=== PATIENT | female | born 1990 | race Two or more races ===

== ENCOUNTER 2018-12-02 18:45 | Emergency (ER) | payer MEDICAID ==
[~2018-12-02] VITALS: Ht 165.1 cm; Wt 65.0 kg
[2018-12-02] MEDS ORDERED: SODIUM CHLORIDE 0.9% 1,000 ML IV ONE (19:41)
[2018-12-02 20:54] LABS: CHLORIDE 110 mEq/L (98-107)
[2018-12-02 20:57] LABS: BASOPHILS % 0.2 % (0.0-2.0); EOSINOPHILS % 1.1 % (0.0-5.0); HEMATOCRIT. 39.1 % (36.0-48.0); HEMOGLOBIN. 13.2 g/dL (12.0-16.0); LYMPHOCYTES % 18.2 % (20.0-50.0); MEAN CORPUSCULAR HEMOGLOBIN 30.1 pg (28.0-32.0); MEAN CORPUSCULAR VOLUME 89.4 fL (81.0-99.0); MEAN PLATELET VOLUME 7.1 fl (7.4-10.4); MONOCYTES % 5.6 % (2.0-8.0); NEUTROPHILS % 74.9 % (40.0-76.0); PLATELET 248 x1000/uL (130-400); RED BLOOD CELL COUNT 4.38 mill/uL (4.2-5.4); RED CELL DISTRIBUTION WIDTH 13.8 % (11.6-14.6)
[2018-12-02 21:00] LABS: PHOSPHORUS 2.2 mg/dL (2.5-4.9)
[2018-12-02 22:58] VITALS: BP 125/85
== END 2018-12-02 23:05 | disposition home or self-care (01) ==
LOC: ER 18:45
DX: R25.8 Other abnormal involuntary movements (principal); E83.39 Other disorders of phosphorus metabolism; F31.9 Bipolar disorder, unspecified
CPT/HCPCS: 36415; 80053; 83735; 84100; 85025; 99283; J7030

== ENCOUNTER 2019-09-22 20:58 | Emergency (ER) | payer MEDICAID ==
[~2019-09-22] VITALS: Ht 170.2 cm; Wt 91.0 kg
[2019-09-22 21:04] VITALS: BP 132/66
[2019-09-22] MEDS ORDERED: SODIUM CHLORIDE 0.9% 1,000 ML IV ONE (22:10)
[2019-09-22] MEDS ORDERED: ACETAMINOPHEN 325MG TABLET PO ONE (22:30)
[2019-09-22 23:01] LABS: CLARITY URINE CLEAR (CLEAR); COLOR URINE YELLOW (YELLOW); KETONES URINE NEGATIVE (NEGATIVE); LEUKOCYTE ESTERASE URINE NEGATIVE (NEGATIVE); NITRITE URINE NEGATIVE (NEGATIVE); OCCULT BLOOD URINE 2+ (NEGATIVE); PH URINE 6.5 (4.5-8.0); PROTEIN URINE NEGATIVE (NEGATIVE); SPECIFIC GRAVITY URINE 1.009 (1.005-1.030)
[2019-09-23 00:04] LABS: BASOPHILS % 0.2 % (0.0-2.0); CHLORIDE 108 mEq/L (98-107); EOSINOPHILS % 0.7 % (0.0-5.0); HEMATOCRIT. 39.7 % (36.0-48.0); HEMOGLOBIN. 13.3 g/dL (12.0-16.0); LYMPHOCYTES % 23.3 % (20.0-50.0); MEAN CORPUSCULAR HEMOGLOBIN 29.9 pg (28.0-32.0); MEAN CORPUSCULAR VOLUME 89.1 fL (81.0-99.0); MEAN PLATELET VOLUME 7.5 fl (7.4-10.4); MONOCYTES % 6.8 % (2.0-8.0); PLATELET 247 x1000/uL (130-400); RED BLOOD CELL COUNT 4.46 mill/uL (4.2-5.4); RED CELL DISTRIBUTION WIDTH 13.3 % (11.6-14.6)
[2019-09-23 00:29] LABS: B-HCG QUANTITATIVE 48037 mIU/mL (<3)
== END 2019-09-23 02:29 | disposition home or self-care (01) ==
LOC: ER 21:13
DX: O20.0 Threatened abortion (principal); Z3A.01 Less than 8 weeks gestation of pregnancy; F31.9 Bipolar disorder, unspecified
CPT/HCPCS: 36415; 76700; 76801; 76817; 80053; 81003; 81025; 84702; 85025; 86850; 86900; 86901; 93005; 99285; J7030

== ENCOUNTER 2020-04-09 10:34 | Observation (INO) | payer MEDICAID ==
[~2020-04-09] VITALS: Ht 167.6 cm; Wt 104.3 kg
[2020-04-09] MEDS ORDERED: LACTATED RINGERS 1,000 ML IV ONE (11:00)
[2020-04-09 11:49] LABS: BASOPHILS % 0.1 % (0.0-2.0); EOSINOPHILS % 0.5 % (0.0-5.0); HEMATOCRIT. 37.8 % (36.0-48.0); HEMOGLOBIN. 12.7 g/dL (12.0-16.0); LYMPHOCYTES % 15.9 % (20.0-50.0); MEAN CORPUSCULAR VOLUME 92.1 fL (81.0-99.0); MONOCYTES % 7.9 % (2.0-8.0); NEUTROPHILS % 75.6 % (40.0-76.0); PLATELET 224 x1000/uL (130-400); RED CELL DISTRIBUTION WIDTH 14.2 % (11.6-14.6)
[2020-04-09 11:56] LABS: CLARITY URINE CLOUDY (CLEAR); COLOR URINE YELLOW (YELLOW); KETONES URINE NEGATIVE (NEGATIVE); LEUKOCYTE ESTERASE URINE 1+ (NEGATIVE); NITRITE URINE NEGATIVE (NEGATIVE); OCCULT BLOOD URINE NEGATIVE (NEGATIVE); PH URINE 6.5 (4.5-8.0); PROTEIN URINE NEGATIVE (NEGATIVE); SPECIFIC GRAVITY URINE 1.021 (1.005-1.030)
[2020-04-09] MEDS ORDERED: CEFAZOLIN 2,000 MG in DEXT 5% WATER 100 ML IV SCH (13:00)
== END 2020-04-09 14:00 | disposition home or self-care (01) ==
LOC: 8 EST LDRP 10:34
PROVIDERS: ADMIT Obstetrics & Gynecology; ATTEND Obstetrics & Gynecology
DX: O62.9 Abnormality of forces of labor, unspecified (principal); Z3A.35 35 weeks gestation of pregnancy
CPT/HCPCS: 36415; 59025; 76805; 76817; 76818; 81003; 85025; 86762; 96360; 96361; 96365; G0378; J0690; J7060; 99281

== ENCOUNTER 2020-04-19 23:00 | Observation (INO) | payer MEDICAID ==
[~2020-04-19] VITALS: Ht 167.6 cm; Wt 117.9 kg
[2020-04-20] MEDS ORDERED: ESCI5SOL2 PO (02:10)
[2020-04-20] MEDS ORDERED: PREN-176 MT (02:12)
[2020-04-20] MEDS ORDERED: LITH150C PO (02:14)
== END 2020-04-20 02:20 | disposition home or self-care (01) ==
LOC: 8 EST LDRP 23:00 → 8 EST A/PP 23:39
PROVIDERS: ADMIT Obstetrics & Gynecology; ATTEND Obstetrics & Gynecology
DX: O62.9 Abnormality of forces of labor, unspecified (principal); Z3A.37 37 weeks gestation of pregnancy
CPT/HCPCS: 59025; G0378; 99281

== ENCOUNTER 2020-04-30 06:28 | Inpatient (IN) | payer MEDICAID ==
[~2020-04-30] VITALS: Ht 170.2 cm; Wt 108.0 kg
[~2020-04-30 06:28] MED LIST: ESCI5SOL2 PO; LITH150C PO; PREN-176 MT
[2020-04-30] MEDS ORDERED: METHYLERGONOVINE MALEATE 0.2 MG/ML IM PRN ×2 (07:30→09:15)
[2020-04-30] MEDS ORDERED: CARBOPROST TROMETHAMINE 250 MCG/ML AMPUL IM PRN ×2 (07:30→09:15)
[2020-04-30] MEDS: LACTATED RINGERS 1,000 ML IV SCH ×2 (08:06→21:46)
[2020-04-30 08:26] LABS: CLARITY URINE CLOUDY (CLEAR); COLOR URINE YELLOW (YELLOW); KETONES URINE NEGATIVE (NEGATIVE); LEUKOCYTE ESTERASE URINE 1+ (NEGATIVE); NITRITE URINE NEGATIVE (NEGATIVE); OCCULT BLOOD URINE 2+ (NEGATIVE); PROTEIN URINE TRACE (NEGATIVE); SPECIFIC GRAVITY URINE 1.018 (1.005-1.030); UROBILINOGEN URINE 0.2 E.U./dL (0.2-1.0)
[2020-04-30] MEDS ORDERED: ROPIVACAINE HCL/PF EPIDURAL 200 ML EPI SCH (08:45)
[2020-04-30] MEDS ORDERED: LIDOCAINE HCL 2%/EPINEPHRINE 1:100,000 20 ML VIAL INFIL ONE (08:45)
[2020-04-30] MEDS ORDERED: EPHEDRINE SULFATE 50MG/ML VIAL ONE ×2 (08:45→16:48)
[2020-04-30 08:50] LABS: *AMPHETAMINES SCREEN URINE NEGATIVE (NEGATIVE); *BARBITURATES SCREEN URINE NEGATIVE (NEGATIVE); *BENZODIAZEPINES SCREEN URINE NEGATIVE (NEGATIVE); *COCAINE SCREEN URINE NEGATIVE (NEGATIVE); METHADONE URINE SCREEN NEGATIVE (NEGATIVE); OPIATES URINE SCREEN NEGATIVE (NEGATIVE)
[2020-04-30 08:51] LABS: CANNABINOID URINE SCREEN NEGATIVE (NEGATIVE); PHENCYCLIDINE URINE SCREEN NEGATIVE (NEGATIVE)
[2020-04-30] MEDS ORDERED: LIDOCAINE HCL 1% 20ML VIAL (Pyxis) INJ INFIL SCH (09:15)
[2020-04-30] MEDS ORDERED: BUTORPHANOL TARTRATE 2 MG/ML VIAL IV PRN (09:15)
[2020-04-30] MEDS ORDERED: MISOPROSTOL 100MCG TABLET VG SCH (09:15)
[2020-04-30] MEDS ORDERED: LACTATED RINGERS 1,000 ML IV SCH (09:15)
[2020-04-30] MEDS ORDERED: DEXT 5%/LR + PITOCIN 20UNITS/L 1,000 ML IV SCH (09:15)
[2020-04-30] MEDS ORDERED: NALOXONE HCL 0.4 MG/ML 1ML VIAL IM PRN (09:15)
[2020-04-30 09:53] LABS: BASOPHILS % 0.2 % (0.0-2.0); EOSINOPHILS % 0.9 % (0.0-5.0); HEMATOCRIT. 39.4 % (36.0-48.0); HEMOGLOBIN. 13.3 g/dL (12.0-16.0); LYMPHOCYTES % 15.8 % (20.0-50.0); MEAN CORPUSCULAR VOLUME 91.9 fL (81.0-99.0); MEAN PLATELET VOLUME 7.9 fl (7.4-10.4); MONOCYTES % 6.3 % (2.0-8.0); NEUTROPHILS % 76.8 % (40.0-76.0); PLATELET 247 x1000/uL (130-400); RED BLOOD CELL COUNT 4.28 mill/uL (4.2-5.4); RED CELL DISTRIBUTION WIDTH 13.9 % (11.6-14.6)
[2020-04-30 10:01] LABS: INR 0.9
[2020-04-30] MEDS ORDERED: PENICILLIN G POTASSIUM 5 MMU in DEXT 5% WATER 100 ML IV SCH (11:00)
[2020-04-30] MEDS ORDERED: INFLUENZA VACCINE 05/PF 0.5 ML VIAL IM ONE (13:00)
[2020-04-30 13:01] LABS: HEPATITIS B SURFACE ANTIGEN NEGATIVE
[2020-04-30] MEDS: PENICILLIN G POTASSIUM 2.5 MMU in DEXTROSE 5% WATER 50 ML IV SCH ×2 (16:22→20:24)
[2020-04-30] MEDS ORDERED: FENTANYL CITRATE/PF 50MCG/ML 2ML VIAL ONE (16:47)
[2020-04-30] MEDS ORDERED: MORPHINE SULFATE/PF 1MG/ML 10ML AMP ONE (16:48)
[2020-04-30] MEDS ORDERED: GLYCOPYRROLATE 0.2 MG/ML 2ML VIAL ONE (16:48)
[2020-04-30] MEDS ORDERED: CEFAZOLIN SODIUM 1000MG/VIAL ONE (16:48)
[2020-04-30] MEDS ORDERED: OXYTOCIN 10 UNITS/ML 1ML ONE (16:48)
[2020-04-30] MEDS ORDERED: ONDANSETRON HCL 4MG/2ML INJ ONE (16:48)
[2020-04-30] MEDS ORDERED: PHENYLEPHRINE HCL 10 MG/ML 1ML (IV VIAL) IV ONE (16:48)
[2020-04-30] MEDS ORDERED: CITRIC ACID/SODIUM CITRATE SOLN 30ML UDC PO NR (18:00)
[2020-04-30] MEDS: DEXT 5%/LR + PITOCIN 20UNITS/L 1,000 ML IV SCH (23:07)
[2020-05-01] MEDS: PENICILLIN G POTASSIUM 2.5 MMU in DEXTROSE 5% WATER 50 ML IV SCH ×4 (00:20→13:04)
[2020-05-01] MEDS: LACTATED RINGERS 1,000 ML IV SCH ×4 (01:36→16:49)
[2020-05-01] MEDS ORDERED: ONDANSETRON HCL 4MG/2ML INJ ONE ×2 (02:08→16:22)
[2020-05-01] MEDS ORDERED: ONDANSETRON HCL 4MG/2ML INJ IV PRN ×2 (02:15→18:45)
[2020-05-01] MEDS ORDERED: ROPIVACAINE HCL/PF EPIDURAL 200 ML EPI SCH (09:15)
[2020-05-01 11:13] LABS: BASOPHILS % 0.1 % (0.0-2.0); EOSINOPHILS % 0.4 % (0.0-5.0); HEMATOCRIT. 37.2 % (36.0-48.0); HEMOGLOBIN. 12.6 g/dL (12.0-16.0); LYMPHOCYTES % 12.6 % (20.0-50.0); MEAN CORPUSCULAR HEMOGLOBIN 31.2 pg (28.0-32.0); MEAN CORPUSCULAR VOLUME 92.2 fL (81.0-99.0); MEAN PLATELET VOLUME 7.8 fl (7.4-10.4); MONOCYTES % 7.1 % (2.0-8.0); NEUTROPHILS % 79.8 % (40.0-76.0); PLATELET 215 x1000/uL (130-400); RED BLOOD CELL COUNT 4.04 mill/uL (4.2-5.4); RED CELL DISTRIBUTION WIDTH 14.3 % (11.6-14.6)
[2020-05-01] MEDS ORDERED: CITRIC ACID/SODIUM CITRATE SOLN 30ML UDC PO NR (16:15)
[2020-05-01] MEDS ORDERED: GLYCOPYRROLATE 0.2 MG/ML 2ML VIAL ONE (16:22)
[2020-05-01] MEDS ORDERED: CEFAZOLIN SODIUM 1000MG/VIAL ONE (16:22)
[2020-05-01] MEDS ORDERED: FENTANYL CITRATE/PF 50MCG/ML 2ML VIAL ONE (16:22)
[2020-05-01] MEDS ORDERED: OXYTOCIN 10 UNITS/ML 1ML ONE (16:22)
[2020-05-01] MEDS ORDERED: EPHEDRINE SULFATE 50MG/ML VIAL ONE (16:22)
[2020-05-01] MEDS ORDERED: MORPHINE SULFATE/PF 1MG/ML 10ML AMP ONE (16:22)
[2020-05-01] MEDS ORDERED: MIDAZOLAM HCL 2 MG/2 ML VIAL ONE (18:26)
[2020-05-01] MEDS ORDERED: DIPHENHYDRAMINE 50MG/ML VIAL ONE (18:34)
[2020-05-01] MEDS ORDERED: LANOLIN OINT 7GM TUBE TOP PRN (18:45)
[2020-05-01] MEDS ORDERED: DEXT 5%/LR + PITOCIN 20UNITS/L 1,000 ML IV SCH (18:45)
[2020-05-01] MEDS ORDERED: RHO(D) IMMUNE GLOBULIN 300 MCG/SYR IM PRN (18:45)
[2020-05-01] MEDS ORDERED: IBUPROFEN 400MG TABLET PO PRN (18:45)
[2020-05-01] MEDS ORDERED: ACETAMINOPHEN WITH CODEINE 300/30MG TABLET PO PRN (18:45)
[2020-05-01] MEDS ORDERED: BISACODYL 10MG SUPP PR PRN (18:45)
[2020-05-01] MEDS ORDERED: HEMORRHOIDAL SUPP PR PRN (18:45)
[2020-05-01] MEDS ORDERED: NALOXONE HCL 0.4 MG/ML 1ML VIAL IV PRN (19:00)
[2020-05-01] MEDS ORDERED: BUTORPHANOL TARTRATE 2 MG/ML VIAL IV PRN (19:00)
[2020-05-01] MEDS ORDERED: DIPHENHYDRAMINE 50MG/ML VIAL IV PRN (19:00)
[2020-05-01] MEDS: DIPHENHYDRAMINE 25MG CAPSULE PO PRN (20:10)
[2020-05-01 20:45] VITALS: BP 108/58
[2020-05-01] MEDS ORDERED: DOCUSATE SODIUM 100MG CAPSULE PO SCH (21:00)
[2020-05-01 21:20] VITALS: BP 111/74
[2020-05-01 22:00] VITALS: BP 114/69
[2020-05-01] MEDS: KETOROLAC 30MG/ML VIAL IV SCH (23:01)
[2020-05-02] VITALS: BP 115/72
[2020-05-02 04:00] VITALS: BP 105/57
[2020-05-02] MEDS: KETOROLAC 30MG/ML VIAL IV SCH ×2 (05:02→12:05)
[2020-05-02] MEDS: DEXT 5%/LR + PITOCIN 20UNITS/L 1,000 ML IV SCH (05:03)
[2020-05-02 07:30] VITALS: BP 105/57
[2020-05-02 07:40] LABS: BASOPHILS % 0.1 % (0.0-2.0); EOSINOPHILS % 0.4 % (0.0-5.0); HEMATOCRIT. 30.1 % (36.0-48.0); HEMOGLOBIN. 10.7 g/dL (12.0-16.0); LYMPHOCYTES % 14.6 % (20.0-50.0); MEAN CORPUSCULAR HEMOGLOBIN 32.8 pg (28.0-32.0); MEAN CORPUSCULAR VOLUME 91.9 fL (81.0-99.0); MEAN PLATELET VOLUME 7.5 fl (7.4-10.4); MONOCYTES % 8.4 % (2.0-8.0); NEUTROPHILS % 76.5 % (40.0-76.0); PLATELET 177 x1000/uL (130-400); RED BLOOD CELL COUNT 3.27 mill/uL (4.2-5.4); RED CELL DISTRIBUTION WIDTH 13.8 % (11.6-14.6)
[2020-05-02] MEDS ORDERED: TETANUS, DIPHTHERIA, PERTUSSIS VAC/PF 0.5ML (>7YR OLD) IM ONE (09:00)
[2020-05-02] MEDS: PRENATAL VIT/FE FUMARATE/FA TABLET PO SCH (09:30)
[2020-05-02] MEDS: MAGNESIUM/ALUMINUM HYDROXIDE/SIMETHICONE 30ML UDC PO SCH ×2 (09:30→17:39)
[2020-05-02] MEDS: FERROUS SULFATE 325MG TABLET PO SCH (09:30)
[2020-05-02] MEDS: SIMETHICONE 80MG TABLET CHEW PO SCH ×3 (09:31→21:17)
[2020-05-02] MEDS ORDERED: INFLUENZA VACCINE 05/PF 0.5 ML VIAL IM ONE (12:00)
[2020-05-02] MEDS ORDERED: KETOROLAC 30MG/ML VIAL ONE (12:09)
[2020-05-02] MEDS: DIPHENHYDRAMINE 25MG CAPSULE PO PRN (15:42)
[2020-05-02 17:00] VITALS: BP 100/60
[2020-05-02] MEDS: IBUPROFEN 800MG TABLET PO PRN (18:26)
[2020-05-02 20:15] VITALS: BP 122/66
[2020-05-03] MEDS: IBUPROFEN 800MG TABLET PO PRN ×2 (00:37→09:55)
[2020-05-03 04:30] VITALS: BP 122/79
[2020-05-03] MEDS: DIPHENHYDRAMINE 25MG CAPSULE PO PRN (05:13)
[2020-05-03 08:00] VITALS: BP 131/87
[2020-05-03] MEDS: SIMETHICONE 80MG TABLET CHEW PO SCH ×4 (08:00→20:23)
[2020-05-03] MEDS: MAGNESIUM/ALUMINUM HYDROXIDE/SIMETHICONE 30ML UDC PO SCH ×4 (09:54→20:24)
[2020-05-03] MEDS: PRENATAL VIT/FE FUMARATE/FA TABLET PO SCH (09:55)
[2020-05-03] MEDS: FERROUS SULFATE 325MG TABLET PO SCH ×3 (09:55→17:30)
[2020-05-03] MEDS: LITHIUM CARBONATE 150 MG CAPSULE PO SCH ×3 (10:36→21:59)
[2020-05-03 16:00] VITALS: BP 132/72
[2020-05-03 19:30] VITALS: BP 132/82
[2020-05-03] MEDS ORDERED: PATIENT OWN MEDICATION PO SCH (20:00)
[2020-05-03] MEDS ORDERED: TRAZODONE HCL 50MG TABLET PO SCH ×2 (21:00)
[2020-05-04 04:00] VITALS: BP 134/80
[2020-05-04 07:30] VITALS: BP 118/82
[2020-05-04] MEDS ORDERED: IBUP-2030 PO (07:56)
[2020-05-04] MEDS ORDERED: FERR325T23 PO (07:56)
[2020-05-04] MEDS: PRENATAL VIT/FE FUMARATE/FA TABLET PO SCH (08:12)
[2020-05-04] MEDS: FERROUS SULFATE 325MG TABLET PO SCH (08:12)
[2020-05-04] MEDS: LITHIUM CARBONATE 150 MG CAPSULE PO SCH (08:12)
[2020-05-04] MEDS: SIMETHICONE 80MG TABLET CHEW PO SCH (08:12)
[2020-05-04] MEDS: MAGNESIUM/ALUMINUM HYDROXIDE/SIMETHICONE 30ML UDC PO SCH (08:12)
== END 2020-05-04 09:05 | disposition home or self-care (01) | DRG 540 ==
LOC: OBSVTOIN 06:28 → 8 EST LDRP 06:28 → 8EST 05-01 20:45
PROVIDERS: ADMIT Obstetrics & Gynecology; ATTEND Obstetrics & Gynecology
PROC: 3E033VJ Introduction of Other Hormone into Peripheral Vein, Percutaneous Approach (ICD-10-PCS; principal; 2020-05-01)
PROC: 10D00Z1 Extraction of Products of Conception, Low, Open Approach (ICD-10-PCS; 2020-05-01)
DX: O61.9 Failed induction of labor, unspecified (principal); O99.344 Other mental disorders complicating childbirth; O41.03X0 Oligohydramnios, third trimester, not applicable or unspecified; F31.9 Bipolar disorder, unspecified; O90.81 Anemia of the puerperium; D64.9 Anemia, unspecified; Z20.822 Contact with and (suspected) exposure to COVID-19; Z3A.38 38 weeks gestation of pregnancy; Z37.0 Single live birth
CPT/HCPCS: 36415; 76805; 76818; 80305; 81003; 85025; 86592; 86703; 86762; 86850; 86900; 87340; 87426; 88307; 90686; 90715; 99281; J0595; J0690; J1200; J1885; J2250; J2274; J2370; J2405; J2540; J2590; J2795; J3010; J3490; J7060; J7120; Q0163; A4315